=== PATIENT | male | born 1990 | race African-American/Black ===

== ENCOUNTER 2021-02-27 12:34 | Emergency (ER) | payer OTHER, MEDICAID ==
[~2021-02-27] VITALS: Ht 172.7 cm; Wt 75.0 kg
[2021-02-27] MEDS ORDERED: KETOROLAC TROMETHAMINE 60 MG/2 ML VIAL IM ONE (14:45)
[2021-02-27 15:08] VITALS: BP 129/69
== END 2021-02-27 15:09 | disposition home or self-care (01) ==
LOC: EMS 12:34
DX: M54.2 Cervicalgia (principal); M62.838 Other muscle spasm; R07.9 Chest pain, unspecified; F17.210 Nicotine dependence, cigarettes, uncomplicated; V43.52XA Car driver injured in collision with other type car in traffic accident, initial encounter; Y93.89 Activity, other specified; Y92.488 Other paved roadways as the place of occurrence of the external cause; Y99.8 Other external cause status
CPT/HCPCS: 96372; 99283; J1885